=== PATIENT | male | born 1940 | race Caucasian/White ===

== ENCOUNTER 2018-05-04 10:06 | Outpatient (CLI) | payer MEDICARE, OTHER | END 2018-05-04 10:07 | disposition home or self-care (01) | LOC: BICMRI 10:06 | PROVIDERS: ATTEND Orthopaedic Surgery | DX: M48.061 Spinal stenosis, lumbar region without neurogenic claudication (principal); M43.16 Spondylolisthesis, lumbar region; M99.81 Other biomechanical lesions of cervical region | CPT/HCPCS: 72148 ==